=== PATIENT | female | born 2005 | race Asian ===

== ENCOUNTER 2024-02-11 21:23 | Emergency (ER) | payer OTHER, SELFPAY ==
[2024-02-11 21:25] VITALS: BP 109/68; PULSE 131; RESP 18; TEMP 37.1; O2SAT 96
[2024-02-11 21:29] VITALS: BMI 33.7
--- NOTE | 2024-02-11 22:14 | EKG12_ITS ---
Test Reason : TACHYCARDIA Blood Pressure : / mmHG Vent. Rate : 127 BPM Atrial Rate : 127 BPM P-R Int : 120 ms QRS Dur : 082 ms QT Int : 300 ms P-R-T Axes : 048 099 019 degrees QTc Int : 436 ms Sinus tachycardia Rightward axis Borderline ECG Confirmed by JOSE CHANG MD ([id number]), business editor AKILAH APONTE ([id number]) on 02/12/2024 8:51:12 AM Referred By: Confirmed By:JOSE CHANG MD
--- NOTE | 2024-02-11 22:15 | EDS_ITS ---
HPI History of Present Illness Chief Complaint: Palpitations Informant: patient Narrative Narrative: 18-year-old female [employer] student presenting to the emergency room with not feeling well. Patient states that last evening she began to not feel well. She did not go to dinner in the cafeteria. She stated that she felt fatigued generalized body aches and felt mucousy but without cough. She notes that she tried to go to class today but was too fatigued. She has not really had anything to eat today. She denies any fevers or chills. She notes some mild epigastric periumbilical pain but wonders if that is a hunger sensation. She denies any diarrhea or dysuria or urinary frequency. No rashes. She notes a slight headache. She denies any light sensitivity or neck pain. No sore throat. She was noted to be tachycardic by the school nurse and by triage. [facility] History no medical history no medical history Home Medications ?Medication ?Instructions ?Recorded ?Last Taken ?Type NK 02/11/24 Unknown History Surgical History no surgical history no surgical history Social History Smoking Status: Never smoker ROS ROS ED ROS Narrative Generalized fatigue Constitutional Constitutional ED: Denies chills, fever(s) or weight loss Eyes Eyes: Denies change in vision or diplopia ENT ENT ED: Reports rhinorrhea; Denies ear pain or sore throat Cardiovascular Cardiovascular: Denies chest pain, orthopnea, palpitations or racing heartbeat Respiratory/Chest Respiratory/Chest: Denies cough, dyspnea or orthopnea Gastrointestinal Gastrointestinal: Reports abdominal pain; Denies constipation, diarrhea, nausea or vomiting Genitourinary Genitourinary ED: Denies dysuria, hematuria or urinary frequency Musculoskeletal Musculoskeletal: Denies arthralgias, back pain, myalgias or neck pain Integumentary Denies abscess or rash Neurologic Neurologic: Reports headache(s); Denies paresthesias or weakness Psychiatric Psychiatric: Denies anxiety, depression, suicidal ideation or suicidal thoughts Endocrine Endocrinology: Denies polydipsia, polyphagia or polyuria Allergic/Immunologic Allergic/Immunologic ED: Denies mouth swelling, tongue swelling or urticaria EXAM Physical Exam Const Vital Signs: 02/11/24 21:25 02/11/24 22:24 02/11/24 23:00 Temperature 98.8 F Temperature Source Oral Pulse Rate 131 H 119 H 105 H Respiratory Rate 18 19 H 18 Blood Pressure 109/68 Blood Pressure Mean 81 Pulse Ox 96 98 98 Oxygen Delivery Method Room Air Room Air Room Air 02/11/24 23:46 02/12/24 00:07 02/12/24 00:15 Temperature Temperature Source Pulse Rate 104 H 98 100 Respiratory Rate 14 15 Blood Pressure 99/58 L 100/57 L Blood Pressure Mean 70 70 Pulse Ox 98 97 Oxygen Delivery Method Positive well nourished and well developed General Appearance ED: well developed HEENT Reports normocephalic, head/scalp atraumatic and moist mucous membranes Eyes PERRL and EOMs intact bilaterally Neck no lymphadenopathy, supple and no JVD Resp normal respiratory effort and clear to auscultation bilaterally Cardio regular rate, regular rhythm and no murmurs Rate: tachycardic GI GI Narrative: Minimal tenderness in the periumbilical region. There is no right lower quadrant tenderness with deep palpation. There is no guarding there is no rebound. Normal active bowel sounds. The abdomen is soft. Palpation: soft Back/Spine no CVA tenderness and normal ROM Extremity normal to inspection General Extremety ED: Negative for edema General Extremity: Negative for edema Neuro oriented x3 and CN's II-XII intact bilaterally Sensorium / Orientation: alert Motor Exam: strength 5/5 throughout Psych mental status grossly normal Mood & Affect: Negative for depressed or tearful Skin no rashes or lesions noted and no wounds MDM MDM MDM Narrative Medical decision making narrative: Differential diagnosis includes cardiac dysrhythmia electrolyte abnormalities hyperthyroid dehydration viral syndrome pneumonia UTI EKG shows a sinus tachycardia. White count 11.2 hemoglobin 12.9 platelet count of 258. Electrolytes are within normal limits troponin is normal liver enzymes within normal limits TSH is low at 0.174 test is negative urinalysis with no obvious infection but evidence of dehydration with ketones. Magnesium 1.8 glucose 104. My independent interpretation of the chest x-ray is no acute process. COVID test is positive. Patient received IV fluids and a dose of Toradol. My recommendation is supportive care at this time. I will ask that she follow-up on her decreased TSH level when she is healed from the COVID either with primary care or with her endocrinology. Would recommend Tylenol or Motrin for fever control and continued oral hydration. Patient is comfortable with this plan she has had heart rates down into the 90s after her IV fluids and she remains without hypotension. History & Record Review Discussion w/independent historian: Patient Lab Data Attestation: I reviewed the patient's lab results. Labs: Laboratory Results - last 24 hr 02/11/24 02/12/24 21:52 00:00 WBC 11.2 H RBC 5.22 Hgb 12.9 Hct 39.8 MCV 76.2 L MCH 24.7 L MCHC 32.4 RDW Std Deviation 38.5 RDW Coeff of Phill 14.1 Plt Count 258 MPV 11.6 Immature Gran % (Auto) 0.600 Neut % (Auto) 84.1 H Lymph % (Auto) 7.9 L [place] % (Auto) 7.0 Eos % (Auto) 0.2 Baso % (Auto) 0.2 Absolute Neuts (auto) 9.4 H Absolute Lymphs (auto) 0.89 Nucleated RBC % 0 Differential Comment SCANNED Platelet Estimate ADEQUATE Sodium 136 Potassium 3.7 Chloride 105 Carbon Dioxide 23.0 Anion Gap 8 BUN 7 Creatinine 0.83 Estim Creat Clear Calc 114.02 Est GFR (MDRD) Af Amer 112 Est GFR (MDRD) Non-Af 92 BUN/Creatinine Ratio 8.4 L Glucose 104 Calcium 8.7 Magnesium 1.8 Total Bilirubin 0.70 Direct Bilirubin 0.15 AST 29 ALT 27 Alkaline Phosphatase 92 Troponin I High Sens 4 Total Protein 8.5 H Albumin 3.4 Globulin 5.1 H Lipase 20 TSH 0.174 L Serum , Qual NEGATIVE Urine Color Yellow Urine Clarity Clear Urine pH 6.0 Ur Specific [place] 1.015 Urine Protein 30 H Urine Glucose (UA) Normal Urine Ketones 150 A* Urine Occult Blood 10 H Urine Nitrite Negative Urine Bilirubin Negative Urine Urobilinogen 1 H Ur Leukocyte Esterase 25 H Urine RBC 0-5 SEEN Urine WBC 0-5 SEEN Ur Squamous Epith Cells 0-5 SEEN Urine Bacteria RARE Urine Mucus 0 SEEN Radiography Diagnostic Testing: Clinical Impression(s) from Imaging Studies Chest X-Ray 02/11/24 22:20 IMPRESSION: No radiographic evidence of acute cardiopulmonary disease. Electronically Signed: Kristian Whitaker DO at 22:40 EDT , EKG Initial EKG: Attestation: I personally reviewed and interpreted this EKG as follows: Comments: Sinus tachycardia with a ventricular rate of 127 bpm Discharge Plan Triage Chief Complaint: Palpitations ED Provider: Alex Stephen Dx/Rx/DC Orders Clinical Impression: COVID-19, Acute dehydration, Tachycardia, Decreased thyroid stimulating hormone (TSH) level Instructions: Coronavirus Disease 2019 (COVID-19): Caring for Yourself or Others Prescriptions: No Action NK Primary Care Provider: Care Physician,No Primary Referrals: Navin Hamilton MD [Med Staff - Courtesy Staff] - (For endocrinology follow-up) Care Physician,No Primary [Primary Care Provider] - Activity Restrictions/Additional Instructions: As we discussed you are positive for COVID-19. I do recommend Tylenol/Motrin for fever control and bodyaches. Make sure to get plenty of rest. Please drink plenty of fluids to keep your urine a clear to light yellow. As we discussed your TSH is low today. This is generally related to a thyroid gland that is producing more thyroid hormone. Once you are healed from COVID you should have your TSH rechecked. Please see the above referral to endocrinology if you wish to follow-up with them or you may see primary care. Print Language: Belarusian Disposition Disposition: Home, Self Care
--- NOTE | 2024-02-11 22:20 | RAD_ITS ---
EXAM: XR CHEST, 1 VIEW CLINICAL INDICATION: palpitations TECHNIQUE: Frontal view of the chest. COMPARISON: No relevant prior studies available. FINDINGS: LUNGS AND PLEURAL SPACES: No significant abnormality. No consolidation or edema. No pneumothorax. No effusion. HEART: No significant abnormality. Cardiac silhouette not enlarged. MEDIASTINUM: Central airways and mediastinal contour are unremarkable. BONES/JOINTS: No significant abnormality. No acute fracture. SOFT TISSUES: No significant abnormality. RAD/Chest 1 View (Portable) IMPRESSION: No radiographic evidence of acute cardiopulmonary disease. Electronically Signed: Kristian Whitaker DO at 22:40 EDT ,
[2024-02-11 22:24] VITALS: PULSE 119; RESP 19; O2SAT 98
[2024-02-11 22:31] LABS: Absolute Lymphocyte Count 0.89 X10^3/uL (0.83-4.51); Absolute Neutrophil Count 9.4 X10^3/uL (2.0-7.7); Basophil# 0.02 X10^3/uL; Basophil% 0.2 % (0-1); Eosinophil# 0.02 X10^3/uL; Eosinophils% 0.2 % (0-5); Hematocrit 39.8 % (37-47); Hemoglobin 12.9 g/dL (12.0-15.0); Lymphocyte # 0.89 X10^3/ul (0.83-4.51); Lymphocyte % 7.9 % (19-41); Mean Corp Hgb Conc 32.4 g/dL (32-36); Mean Corpuscular Hgb 24.7 pg (27.0-32.0); Mean Corpuscular Volume 76.2 fL (81-99); Mean Platelet Vol. 11.6 fl (6.2-12.0); Monocyte# 0.78 X10^3/uL; NRBC Flagged by Analyzer 0 % (0-5); Neutrophil # 9.42 X10^3/uL (2.7-7.7); Neutrophil % 84.1 % (47-70); POSITIVE COUNT YES; RBC Distribution Width CV 14.1 % (11.6-14.6); RBC Distribution Width SD 38.5 fl (35.1-43.9); Red Blood Count 5.22 M/mm3 (4.2-5.4); White Blood Count 11.2 K/mm3 (4.4-11.0)
[2024-02-11] MEDS: 0.9% Normal Saline (1000mL) 1,000 ML 1000 ML IV (22:33)
[2024-02-11] MEDS: Ketorolac 30 MG/ML Syringe IV (22:33)
[2024-02-11 22:37] LABS: Differential Indicated SCAN CRITERIA MET
[2024-02-11 22:41] LABS: Internal QC Validated? YES +Cl - CLEAR BKGD
[2024-02-11 22:42] LABS: Pregnancy, Serum, hCG Quali. NEGATIVE Negative; Record Kit Lot#, Serum Preg. 772476
[2024-02-11 23:00] VITALS: PULSE 105; RESP 18; O2SAT 98
[2024-02-11 23:00] LABS: AST(SGOT) 29 U/L (15-37); Alanine Aminotransfer ALT/SGPT 27 U/L (13-56); Albumin, Serum 3.4 g/dL (3.2-5.0); Alkaline Phosphatase 92 U/L (45-117); Anion Gap 8 (5-15); BUN 7 mg/dL (7-18); BUN/Creat Ratio 8.4 RATIO (10-20); Bilirubin, Direct 0.15 mg/dL (0.00-0.30); Calcium,Total 8.7 mg/dL (8.5-10.1); Chloride 105 mmol/L (98-107); Creatinine, Serum 0.83 mg/dL (0.55-1.02); EST Glomerular Filtration Rate 92 mL/min (>60); Est Glom Filt Rate - Afr Amer 112 mL/min (>60); Estimated Creatinine Clearance 114.02 ml/min; Globulin 5.1 g/dL (2.2-4.2); Glucose 104 mg/dL (74-106); Lipase 20 U/L (13-75); Magnesium 1.8 mg/dL (1.6-2.6); Potassium 3.7 mmol/L (3.5-5.1); Protein, Total 8.5 g/dL (6.4-8.2); Sodium Level 136 mmol/L (136-145); Thyroid Stim Hormone (TSH) 0.174 uIU/mL (0.358-3.740); Troponin-I HS 4 pg/mL (3.0-54.0)
[2024-02-11 23:08] LABS: Differential Comment SCANNED; Platelet Count 258 K/mm3 (150-450); Platelet Estimate ADEQUATE (ADEQ)
[2024-02-11 23:46] VITALS: BP 99/58; PULSE 104; RESP 14; O2SAT 98
[2024-02-12 00:07] VITALS: PULSE 98
[2024-02-12 00:14] LABS: Mucous, Urine 0 SEEN /hpf (<or=2+)
[2024-02-12 00:15] VITALS: BP 100/57; PULSE 100; RESP 15; O2SAT 97
[2024-02-12 00:25] LABS: Color, Urine Yellow (Yellow); Glucose, Dipstick Normal (Normal); Leukocyte Esterase-Dipstick 25 /ul (Negative); Nitrite-Dipstick Negative (Negative); Occult Blood-Urine 10 /ul (Negative); Protein-Dipstick 30 mg/dl (Negative); Specific Gravity, Urine 1.015 (1.002-1.030); Urine Bilirubin Dipstick Negative (Negative); Urine Clarity Clear (Clear); Urine Urobilinogen 1 mg/dl (Normal)
[2024-02-12 00:30] LABS: Ketone-Dipstick 150 mg/dl (Negative)
[2024-02-12 00:37] LABS: Bacteria RARE /hpf (None Seen); Red Blood Cells-Urine 0-5 SEEN /hpf (0-5); Squamous Epithelial Cells - UA 0-5 SEEN /hpf (5-10); White Blood Cells 0-5 SEEN /hpf (0-5)
[2024-02-12 00:54] VITALS: BP 116/68; PULSE 100; RESP 15; TEMP 37.3; O2SAT 98
== END 2024-02-12 00:55 | disposition home or self-care (01) ==
PROVIDERS: Emergency Provider Emergency Medicine; Visit Provider Emergency Medicine
DX: U07.1 COVID-19 (principal); E86.0 Dehydration; R00.0 Tachycardia, unspecified; R10.13 Epigastric pain; R51.9 Headache, unspecified
CPT/HCPCS: 71045; 80048; 80076; 81001; 83690; 83735; 84443; 84484; 84703; 85025; 87631; 93005; 96361; 96374; 99283; J7030; A4216